=== PATIENT | female | born 1995 | race Two or more races ===

== ENCOUNTER 2024-04-20 05:00 | Day surgery (SDC) | payer OTHER ==
[2024-04-18 10:25] VITALS: BP 107/72
[~2024-04-20] VITALS: Ht 157.5 cm; Wt 98.4 kg
[2024-04-20] MEDS ORDERED: CLINDAMYCIN PHOSPHATE 150 MG/ML (900mg) IV ONE (08:15)
[2024-04-20] MEDS ORDERED: EPINEPHRINE HCL/PF 1 MG/ML AMPUL IJ ONE (08:30)
[2024-04-20] MEDS ORDERED: POVIDONE-IODINE 118 ML BOTT TOP ONE (08:30)
[2024-04-20] MEDS ORDERED: GENTAMICIN SULFATE 40 MG/ML VIAL IR ONE (08:30)
[2024-04-20] MEDS ORDERED: CEFAZOLIN SODIUM 1,000 MG VIAL IV ONE (08:30)
[2024-04-20] MEDS ORDERED: POVIDONE-IODINE SCRUB 118 ML BOTT TOP ONE (08:30)
[2024-04-20] MEDS ORDERED: NITROGLYCERIN 1 INCH OINT..GM. TD ONE ×2 (09:30)
[2024-04-20] MEDS ORDERED: MORPHINE SULFATE 4 MG/ML VIAL IV PRN (10:30)
[2024-04-20] MEDS ORDERED: ONDANSETRON HCL 2 MG/ML VIAL IV PRN (10:30)
[2024-04-20] MEDS ORDERED: SUGAMMADEX SODIUM 200 MG/2 ML VIAL IV SCH (11:45)
[2024-04-20] MEDS ORDERED: MORPHINE SULFATE 4 MG/ML VIAL IV ONE (12:45)
== END 2024-04-20 15:40 | disposition home or self-care (01) ==
LOC: CIR.AMB 05:00
PROVIDERS: ATTEND Plastic Surgery
DX: N62 Hypertrophy of breast (principal)